=== PATIENT | female | born 2000 | race Caucasian/White ===

== ENCOUNTER → 2020-05-15 | Outpatient (CLI) | payer OTHER ==
--- NOTE | 2020-05-15 13:25 | EKG ---
[place] [address] [employer] [place] [address] ELECTROCARDIOGRAM REPORT Name: NADER MAK Room #: [facility]#: [id number] Admission: 05/15/20 Attend Phys: Valerie Arenas MD Discharge: Date of : 89 Report #: [id number] [facility] Test Date: 2020-05-15 Test Time: 12:08:45 Pat Name: NADER MAK Department: Room: Gender: F Instructional Facilitator: SBUL : 2000 Requested By: Valerie Arenas Order Number: [id number] : Hubert Alexandra Measurements Intervals [place] Rate: 74 P: 70 CA: 199 QRS: 99 QRSD: 86 T: 54 QT: 379 QTc: 421 Interpretive Statements Sinus rhythm Probable left atrial enlargement Borderline right axis deviation No previous ECG available for comparison Electronically Signed On 05-15-2020 13:25:00 RADIO INTERFERENCE SUPERVISOR by Hubert Alexandra [email or web address] <ELECTRONICALLY SIGNED> By: Hubert Alexandra MD, [facility] 05/15/20 1325 1208 1208 Hubert Alexandra MD, FACC /EPI
== END ==
LOC: CV 11:35
PROVIDERS: ATTEND Pediatrics
DX: I49.9 Cardiac arrhythmia, unspecified (principal); R00.0 Tachycardia, unspecified